=== PATIENT | female | born 2000 | race African-American/Black ===

== ENCOUNTER 2020-11-21 12:17 | Emergency (ER) | payer OTHER ==
[~2020-11-21] VITALS: Ht 165.1 cm; Wt 49.9 kg
[2020-11-21 12:59] LABS: URINE BLOOD NEGATIVE (Negative); URINE CLARITY CLEAR; URINE COLOR YELLOW; URINE GLUCOSE-RANDOM NEGATIVE (Negative); URINE KETONES TRACE (Negative); URINE LEUKOCYTES-REFLEX 1+ (Negative); URINE NITRITE-REFLEX NEGATIVE (Negative); URINE PROTEIN TRACE (Negative); URINE SPECIFIC GRAVITY 1.025 (1.005-1.030); URINE UROBILINOGEN 0.2 E.U./dl (0.2-1.0)
[2020-11-21 13:01] LABS: HEMATOCRIT 42.4 % (37.0-47.0); MCH 30.1 pg (26.0-34.0); MCHC 32.9 g/dL (28.0-37.0); MCV 91.5 fL (80.0-100.0); MPV 8.3 fl. (7.2-11.1); NUCLEATED RBCS 0 /100WBC; RBC 4.64 mil/uL (4.20-5.00); RDW-CV 15.5 % (10.5-14.5); WBC 22.5 thou/uL (4.0-11.0)
[2020-11-21 13:03] LABS: ICTOTEST (BILI CONFIRMATORY) Negative (Negative); URINE BILIRUBIN 1+ (Negative)
[2020-11-21 13:12] LABS: CASTS None Seen /LPF (None Seen); CRYSTALS None Seen /LPF (None Seen); SQUAMOUS 0-3 Few /LPF (0-3); URINE RBC 0-2 Rare /HPF (0-2); URINE WBC-REFLEX 6-15 Few /HPF (0-5)
[2020-11-21 13:18] LABS: CALCIUM 8.9 mg/dL (8.5-10.1); CREATININE 0.8 mg/dL (0.6-1.3); POTASSIUM 3.6 mmol/L (3.5-5.1)
[2020-11-21 13:23] LABS: ALBUMIN 4.5 g/dL (3.4-5.0); TOTAL BILIRUBIN 1.1 mg/dL (<0.1-1.0); TOTAL PROTEIN 8.4 g/dL (6.4-8.2)
[2020-11-21 13:31] LABS: ABSOLUTE LYMPHOCYTES 0.2 thou/uL (0.8-5.3); ABSOLUTE MONOCYTES 0.2 thou/uL (0.0-1.2); ABSOLUTE NEUTROPHILS 22.1 thou/uL (1.6-8.1); PLATELET ESTIMATE ADEQUATE
[2020-11-21 13:32] LABS: ANISOCYTOSIS 1+; PLATELET COUNT* 207 thou/uL (150-400); POIKILOCYTOSIS 1+
[2020-11-21] MEDS ORDERED: ONDANSETRON HCL4 M2 PO (16:47)
[2020-11-21] MEDS ORDERED: NORCO5 PO (16:47)
[2020-11-21] MEDS ORDERED: KEFLEX500 M1 PO (16:47)
[2020-11-21 17:07] VITALS: BP 96/49
== END 2020-11-21 17:08 | disposition home or self-care (01) ==
LOC: M.ERS 12:17
PROVIDERS: Nurse Practitioner Family
DX: N39.0 Urinary tract infection, site not specified (principal); D72.829 Elevated white blood cell count, unspecified; R11.2 Nausea with vomiting, unspecified